=== PATIENT | female | born 1975 | race Caucasian/White ===

== ENCOUNTER 2016-12-18 11:56 | Emergency (ER) | payer BC ==
[2016-12-18 12:07] VITALS: BMI 28.3
--- NOTE | 2016-12-18 13:38 | CT ---
PROCEDURE: CT HEAD WITHOUT CONTRAST. HISTORY: left sided headadche COMPARISON: None available. TECHNIQUE: Axial computed tomography images were obtained through the head/brain without intravenous contrast. Radiation dose: Total exam DLP = 730.05 mGy-cm. This CT exam was performed using one or more of the following dose reduction techniques: Automated exposure control, adjustment of the mA and/or kV according to patient size, and/or use of iterative reconstruction technique. FINDINGS: HEMORRHAGE: No intracranial hemorrhage. BRAIN: No mass effect or edema. No atrophy or chronic microvascular ischemic changes. VENTRICLES: Unremarkable. No hydrocephalus. CALVARIUM: Unremarkable. PARANASAL SINUSES: Unremarkable as visualized. No significant inflammatory changes. MASTOID AIR CELLS: Unremarkable as visualized. No inflammatory changes. OTHER FINDINGS: None. IMPRESSION: No intracranial mass, hemorrhage or evidence of acute infarct. Normal examination.
[2016-12-18 14:11] VITALS: TEMP 98.4
--- NOTE | 2016-12-18 14:36 | C.PDOC ---
History Of Present Illness 41-year-old female, presents to the emergency department with complaints of headache. Patient states she has a stressful job, and she developed a left sided headache at work. States she feels anxious. Patient notes she suffers from headaches, that are usually associated with menstrual cycle, but is not currently on cycle, resulting in her coming to the ED for evaluation. States her BP was elevated at work. Denies nausea/vomiting, chills, fevers, dizziness, numbness/weakness or any other associated symptoms. No other complaints at this time. Time Seen by Provider: 12/18/16 12:20 Chief Complaint (Nursing): Headache History Per: Patient History/Exam Limitations: no limitations Onset/Duration Of Symptoms: Days Current Symptoms Are (Timing): Still Present Past Medical History Reviewed: Historical Data, Nursing Documentation, Vital Signs Vital Signs: Last Vital Signs Temp 98.4 F 12/18/16 14:10 Pulse 80 12/18/16 15:53 Resp 18 12/18/16 15:53 BP 138/79 12/18/16 15:53 Pulse Ox 99 12/18/16 15:55 - Medical History PMH: Hyperlipidemia, Kidney Stones, Chronic Kidney Disease Denies: Anxiety, Bipolar Disorder, Depression, Personality Disorder, Post Traumatic Stress Disorder, Schizophrenia Family History: States: No Known Family Hx - Social History Hx Alcohol Use: No Hx Substance Use: No - Immunization History Hx Tetanus Toxoid Vaccination: No Hx Influenza Vaccination: No Hx Pneumococcal Vaccination: No Review Of Systems Except As Marked, All Systems Reviewed And Found Negative. Constitutional: Negative for: Fever, Weakness Cardiovascular: Negative for: Chest Pain Respiratory: Negative for: Hemoptysis Gastrointestinal: Negative for: Vomiting Musculoskeletal: Negative for: Back Pain Skin: Negative for: Rash Neurological: Positive for: Headache. Negative for: Weakness, Numbness Physical Exam - Physical Exam Appears: Non-toxic, No Acute Distress Skin: Normal Color, Warm, Dry Head: Atraumatic, Normacephalic Eye(s): bilateral: Normal Inspection, PERRL, EOMI Nose: Normal Throat: Normal Neck: Normal Cardiovascular: Rhythm Regular Respiratory: Normal Breath Sounds Gastrointestinal/Abdominal: Normal Exam Back: Normal Inspection Extremity: Normal ROM Neurological/Psych: Oriented x3, Normal Speech, Normal Cognition, Normal Motor, Normal Sensation ED Course And Treatment O2 Sat by Pulse Oximetry: 99 - CT Scan/US Head CT Other Rad Studies (CT/US): Read By Radiologist, Radiology Report Reviewed CT/US Interpretation: Accession No. : [id number]. Patient Name / ID : ANNETTA PAUL / [id number]. Exam Date : 12/18/2016 13:34:46 ( Approved ). Study Comment : Sex / Age : F / 41Y. Creator : Jarocho June MD. Dictator : Jarocho June MD. Retirement Sales Consultant : Bill Distributor : Jarocho June MD. Approver2 : Report Date : 12/18/2016 13:37:16. My Comment : . PROCEDURE : CT HEAD WITHOUT CONTRAST. HISTORY: left sided headadche. COMPARISON: None available. TECHNIQUE: Axial computed tomography images were obtained through the head/brain without intravenous contrast. Radiation dose: Total exam DLP = 730.05 mGy-cm. This CT exam was performed using one or more of the following dose reduction techniques: Automated exposure control, adjustment of the mA and/or kV according to patient size, and/or use of iterative reconstruction technique. FINDINGS: HEMORRHAGE: No intracranial hemorrhage. BRAIN: No mass effect or edema. No atrophy or chronic microvascular ischemic changes. VENTRICLES: Unremarkable. No hydrocephalus. CALVARIUM: Unremarkable. PARANASAL SINUSES: Unremarkable as visualized. No significant inflammatory changes. MASTOID AIR CELLS: Unremarkable as visualized. No inflammatory changes. OTHER FINDINGS: None. IMPRESSION: No intracranial mass , hemorrhage or evidence of acute infarct. Normal examination. Progress Note: Plan: CT Head. Ultram, Valium. Reassess and Disposition. On re-evaluation patient feels better. Patient sts he menstruation started while she was in ED. Disposition - Disposition Disposition: HOME/ ROUTINE Disposition Time: 15:53 Condition: IMPROVED Additional Instructions: Follow up with PMD within 1-2 days. Return to ED if feel worse. Prescriptions: Acetaminophen/Butalbital/Caf [Fioricet] 1 tab PO TID PRN #20 tab PRN Reason: Headache Cyclobenzaprine [Cyclobenzaprine HCl] 10 mg PO TID #30 tab Ibuprofen [Motrin Tab] 600 mg PO Q8 #30 tab Instructions: Tension Headache (ED) Forms: Work Excuse - Clinical Impression Clinical Impression: Headache, Neck pain - Scribe Statement The provider has reviewed the documentation as recorded by the [facility] All medical record entries made by the Lidaibjose were at my direction and personally dictated by me. I have reviewed the chart and agree that the record accurately reflects my personal performance of the history, physical exam, medical decision making, and the department course for this patient. I have also personally directed, reviewed, and agree with the discharge instructions and disposition.
[2016-12-18 15:53] VITALS: BP 138/79; PULSE 80; RESP 18
[2016-12-18 15:55] VITALS: O2SAT 99
== END 2016-12-18 16:01 | disposition home or self-care (01) ==
LOC: C.ER 11:56
DX: R51 Headache (principal); M54.2 Cervicalgia